=== PATIENT | female | born 1950 | race Caucasian/White ===

== ENCOUNTER → 2017-11-15 | Day surgery (SDC) | payer OTHER ==
[~2017-11-15] VITALS: Ht 172.7 cm; Wt 77.6 kg
[~2017-11-15] MED LIST: ACETAMINOPHEN500 M4 PO; IBUPROFEN800 M1 PO; ROBAXIN-750750 M1 PO; VITAMIN D35000 UNI1 PO; VOLTAREN100 GM TOP; [UNRECOGNIZED DRUG - OTHER] PO
--- NOTE | 2017-11-15 13:39 | Operative Report ---
Operative/Inv Procedure Report Surgery Date: 11/15/17 Name of Procedure: Cystoscopy, bladder biopsy, and fulguration Pre-Operative Diagnosis: Bladder cancer rule out recurrence Post-Operative Diagnosis: Same Estimated Blood Loss: scant Surgeon/Research Lab Assistant: Zen THOMPSON,Chago Neri Anesthesia: moderate sedation Drains: None Specimens: Bladder biopsy Complications: None Condition: Good Operative Indication: History of bladder cancer status post intravesical therapy. Was noted to have slight irregularity on recent cystoscopy biopsy which was suspicious for recurrence. She returns today for operative biopsy/fulguration. Was made where the complications/indications a rub and potential need for further procedures. Operative/Procedure Note Note: With close anesthetic monitoring patient was placed in the lithotomy position and prepped and draped in a sterile fashion. At this point a 22 [place] cystoscope was passed. Recent into the bladder thorough inspection of bladder revealed erythematous mucosa of the trigone. No papillary lesions were identified. At this point biopsy of the trigone was performed using a cold cup. Specimen was sent for analysis. At this point the area of biopsy as well as the surrounding areas of irregularity were cauterized with excellent hemostasis. Good visualization throughout the procedure. Upon completion of this the patient was awakened and returned to recovery room in good condition. Findings: Irregularity of trigone Discharge Disposition: Same Day Admissions
== END ==
LOC: STS 03:48
DX: Z85.51 Personal history of malignant neoplasm of bladder (principal); N32.89 Other specified disorders of bladder; M19.90 Unspecified osteoarthritis, unspecified site
CPT/HCPCS: J0690; J1885; J2250